=== PATIENT | male | born 1945 | race African-American/Black ===

== ENCOUNTER 2017-07-18 19:04 | Emergency (ER) | payer MEDICARE, MEDICAID ==
[~2017-07-18] VITALS: Ht 177.8 cm; Wt 83.9 kg
--- NOTE | 2017-07-18 19:00 | Emergency Room Report ---
History of Present Illness General Source: Patient, EMS (Manuel Brandt) Present Illness HPI Patient is a 72-year-old male brought in by EMS after increased generalized weakness and nausea and vomiting. Patient prior history of mandibular cancer. Patient had been noted to have several episodes of vomiting today. He denies any abdominal pain. (Manuel Brandt) Allergies: Coded Allergies: No Known Allergies (Unverified , 07/18/17) Patient History Past Medical History: see triage record Reviewed Nursing Documentation: PMH: Agreed, PSxH: Agreed (Manuel Brandt) Physical Exam General Appearance: alert, GCS 15, Chronically Ill ENT: other - right mandible resection, nystagmus with left gaze Neck: limited range of motion Respiratory: chest non-tender, lungs clear, normal breath sounds Cardiovascular #1: normal peripheral pulses, no edema Gastrointestinal: normal bowel sounds, non tender, soft Musculoskeletal: normal inspection, back normal Neurologic: alert, oriented x3, responsive, clinical laboratory scientist III-XII nml as tested, nystagmus Psychiatric: normal inspection, judgement/insight normal Skin: normal inspection, normal color, no rash, warm/dry, other - multiple scars to extremity (Manuel Brandt) Medical Decision Making Diagnostic Impression: Primary Impression: Episode of generalized weakness Additional Impression: Vertigo ER Course Patient presented for dizziness. Differential diagnosis included was not limited to CVA, vertebrobasilar insufficiency, myocardial infarction, benign positional vertigo, labyrinthitis, aspirin overdose among others. Because of complexity of patient's case laboratory testing and imaging studies were ordered.Patient was given Zofran. Patient was given oral meclizine. Patient had improvement in symptoms.Patient was noted to have CT the head read by radiology with atrophic changes without evident acute CVA or intrarenal hemorrhage. .CT of the abdomen pelvis read by radiology showed questionable thickening of the bladder consistent with cystitis. At the time of discharge patient is a ambulatory without assistance with a steady gait Patient is advised follow-up with his primary care physician for further evaluation.The patient is advised to follow up with primary care doctor in 1-2 days. Patient is advised to return if any worsening condition or if any changes in status that are concerning. This report is dictated with DTT full time paramedic software which may occasionally lead to discrepancies related to use of this software. Labs Test 07/18/17 20:20 07/18/17 21:20 White Blood Count 8.7 K/UL (4.8-10.8) Red Blood Count 5.56 M/UL (4.70-6.10) Hemoglobin 17.1 G/DL (14.2-18.0) Hematocrit 50.7 % (42.0-52.0) Mean Corpuscular Volume 91 FL (80-99) Mean Corpuscular Hemoglobin 30.7 PG (27.0-31.0) Mean Corpuscular Hemoglobin Concent 33.7 G/DL (32.0-36.0) Red Cell Distribution Width 11.6 % (11.6-14.8) Platelet Count 179 K/UL (150-450) Mean Platelet Volume 8.2 FL (6.5-10.1) Neutrophils (%) (Auto) 89.7 % (45.0-75.0) Lymphocytes (%) (Auto) 6.9 % (20.0-45.0) Monocytes (%) (Auto) 2.9 % (1.0-10.0) Eosinophils (%) (Auto) 0.0 % (0.0-3.0) Basophils (%) (Auto) 0.4 % (0.0-2.0) Prothrombin Time 10.0 SEC (9.30-11.50) Prothromb Time International Ratio 1.0 (0.9-1.1) Activated Partial Thromboplast Time 23 SEC (23-33) Sodium Level 137 MMOL/L (136-145) Potassium Level 4.8 MMOL/L (3.5-5.1) Chloride Level 100 MMOL/L (98-107) Carbon Dioxide Level 27 MMOL/L (21-32) Anion Gap 10 mmol/L (5-15) Blood Urea Nitrogen 19 mg/dL (7-18) Creatinine 1.7 MG/DL (0.55-1.30) Estimat Glomerular Filtration Rate mL/min (>60) Glucose Level 127 MG/DL (74-106) Calcium Level 10.1 MG/DL (8.5-10.1) Total Bilirubin 0.6 MG/DL (0.2-1.0) Aspartate Amino Transf (AST/SGOT) 42 U/L (15-37) Alanine Aminotransferase (ALT/SGPT) 48 U/L (12-78) Alkaline Phosphatase 104 U/L (46-116) Total Creatine Kinase 274 U/L (26-308) Total Protein 9.0 G/DL (6.4-8.2) Albumin 4.1 G/DL (3.4-5.0) Globulin 4.9 g/dL Albumin/Globulin Ratio 0.8 (1.0-2.7) Lipase 61 U/L (73-393) Urine Color Ruby Urine Appearance Clear Urine pH 5 (4.5-8.0) Urine Specific [place] 1.025 (1.005-1.035) Urine Protein 3+ (NEGATIVE) Urine Glucose (UA) Negative (NEGATIVE) Urine Ketones 2+ (NEGATIVE) Urine Occult Blood Negative (NEGATIVE) Urine Nitrite Negative (NEGATIVE) Urine Bilirubin Negative (NEGATIVE) Urine Ictotest Negative Urine Urobilinogen 1 MG/DL (0.0-1.0) Urine Leukocyte Esterase 1+ (NEGATIVE) Urine RBC 0-2 /HPF (0 - 0) Urine WBC 2-4 /HPF (0 - 0) Urine Squamous Epithelial Cells None /LPF (NONE/OCC) Urine Bacteria Few /HPF (NONE) (Manuel Brandt) Status: improved (aMnuel Brandt) Reevaluation Impression 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 He requested we send him a copy of the CT to his home. This was mailed 07/24. (Amrit Kasper M.D.) Disposition: HOME, SELF-CARE Condition: Stable Scripts Cephalexin* (KEFLEX*) 500 Mg Capsule 500 MG ORAL Q6H, #28 CAP 0 Refills Prov: Manuel Brandt 07/18/17 Ondansetron (Zofran) 4 Mg Tablet 4 MG ORAL Q6H Y for Nausea & Vomiting, #30 TAB 0 Refills Prov: Manuel Brandt 07/18/17 Meclizine Hcl* (MECLIZINE*) 25 Mg Tablet 25 MG ORAL THREE TIMES A DAY, #30 TAB Prov: Manuel Brandt 07/18/17 Manuel Brandt Jul 18, 2017 19:00 Amrit Kasper M.D. Jul 21, 2017 20:06
[~2017-07-18 19:04] MED LIST: Sodium Chloride 500ML 500 ML IV ONE; UNOBMED
[2017-07-18] MEDS ORDERED: Meclizine 25mg tab ORAL ONE (19:30)
[2017-07-18 20:33] LABS: HEMATOCRIT 50.7 % (42.0-52.0); HEMOGLOBIN 17.1 G/DL (14.2-18.0); MEAN CORPUSCULAR VOLUME 91 FL (80-99); PLATELET COUNT 179 K/UL (150-450); RED BLOOD COUNT 5.56 M/UL (4.70-6.10); RED CELL DISTRIBUTION WIDTH 11.6 % (11.6-14.8); WHITE BLOOD COUNT 8.7 K/UL (4.8-10.8)
[2017-07-18 20:34] LABS: BASOPHILS % (AUTO) 0.4 % (0.0-2.0); LYMPHOCYTES % (AUTO) 6.9 % (20.0-45.0); MONOCYTES % (AUTO) 2.9 % (1.0-10.0); NEUTROPHILS % (AUTO) 89.7 % (45.0-75.0)
[2017-07-18 20:41] LABS: ANION GAP 10 mmol/L (5-15); BLOOD UREA NITROGEN 19 mg/dL (7-18); CALCIUM 10.1 MG/DL (8.5-10.1); CARBON DIOXIDE 27 MMOL/L (21-32); CHLORIDE 100 MMOL/L (98-107); CREATININE 1.7 MG/DL (0.55-1.30); POTASSIUM 4.8 MMOL/L (3.5-5.1); SODIUM 137 MMOL/L (136-145)
[2017-07-18 20:46] LABS: ALANINE AMINOTRANSFERASE 48 U/L (12-78); ALBUMIN 4.1 G/DL (3.4-5.0); ALBUMIN/GLOBULIN RATIO 0.8 (1.0-2.7); ALKALINE PHOSPHATASE 104 U/L (46-116); ASPARTATE AMINO TRANSFERASE 42 U/L (15-37); BILIRUBIN,TOTAL 0.6 MG/DL (0.2-1.0); CREATINE KINASE 274 U/L (26-308)
[2017-07-18 21:38] LABS: APPEARANCE,URINE CLEAR; BILIRUBIN, URINE NEGATIVE (NEGATIVE); GLUCOSE, URINE (UA) NEGATIVE (NEGATIVE); KETONES,URINE 2+ (NEGATIVE); LEUKOCYTE ESTERASE ,URINE 1+ (NEGATIVE); NITRITE,URINE NEGATIVE (NEGATIVE); PH,URINE 5 (4.5-8.0); PROTEIN,URINE 3+ (NEGATIVE); UROBILINOGEN,URINE 1 MG/DL (0.0-1.0)
[2017-07-18 21:39] LABS: COLOR,URINE AMBER
[2017-07-18] MEDS ORDERED: MECLIZINE HCL25 MG ORAL (22:21)
[2017-07-18] MEDS ORDERED: ZOFRAN4 MG ORAL (22:21)
[2017-07-18] MEDS ORDERED: KEFLEX500 MG ORAL (22:38)
[2017-07-18 22:40] VITALS: BP 128/89
[2017-07-18 22:44] VITALS: BP 137/97
--- NOTE | 2017-07-19 09:17 | Diagnostic Imaging Report ---
Indication: Reason For Exam: AMS Technique: spiral acquisitions obtained through the brain. Angled axial and coronal 5 x 5 mm slices were reconstructed. No IV contrast utilized. Radiation dose was minimized using automated exposure control Total dose length product 1397.2 mGycm. CTDIvol(s) 70.38 mGy Comparison: none FINDINGS: No acute hemorrhage or edema. No mass effect or midline shift. There is age-related enlargement of the ventricles and extra axial CSF spaces. There is periventricular deep white matter ischemic change. Normal santiago-white differentiation. There is evidence of prior bilateral cataract surgery. Visualized sinuses are unremarkable. The mastoids are clear. Intact calvarium. 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 Negative for acute intracranial bleed or mass effect This agrees with the preliminary interpretation provided overnight by [facility] teleradiology service. The CT scanner at [facility] is accredited by the [employer] and the scans are performed using protocols designed to limit radiation exposure to as low as reasonably achievable to attain images of sufficient resolution adequate for diagnostic evaluation
--- NOTE | 2017-07-19 09:40 | Diagnostic Imaging Report ---
Indication: Abdominal pain, nausea, vomiting Technique: Spiral acquisitions obtained through the abdomen and pelvis. No oral contrast utilized, per emergency room physician request No IV contrast utilized, due to renal insufficiency.. Multiplanar reconstructions were generated. Total dose length product 681.02 mGycm. CTDIvol(s) 14.26 mGy. Dose reduction achieved using automated exposure control Comparison: None Findings: There is colonic diverticulosis. No evidence of diverticulitis. There is suggestion of mild colonic wall thickening diffusely, which is probably an artifact of under distention The appendix is normal. No small bowel distention. No free or loculated intraperitoneal air or fluid is evident. Distal esophagus is somewhat thick walled and there is a small hiatal hernia. The stomach and duodenum are unremarkable. Lack of IV contrast limits assessment of the solid organs. The liver demonstrates numerous subcentimeter low-attenuation lesions which are too small to characterize. A small fluid attenuation lesion with rim calcification is seen adjacent to the gallbladder fossa. A cyst is seen in segment 4A. The gallbladder, bile ducts, pancreas, spleen, adrenals are unremarkable. The left kidney demonstrates a 5.4 cm cyst. Both kidneys demonstrate smaller cysts and subcentimeter low-attenuation lesions which are too small to characterize, most likely benign simple cortical cysts. No retroperitoneal or mesenteric mass or adenopathy. No pelvic mass or adenopathy. Increased attenuation in the lower pelvis and right groin region is likely postsurgical. The included lung bases are clear. The bones demonstrate degenerative spondylosis changes. 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 The left common iliac artery is ectatic but not frankly aneurysmal. Impression: Small hiatal hernia. Mild distal esophageal wall thickening, could indicate esophagitis Equivocal mild colonic wall thickening, probably artifact due to under distention, colitis not completely excludable Rim calcified right lobe liver lesion, probably postinflammatory lesion Hepatic cysts and subcentimeter low-attenuation hepatic lesions which are too small to characterize, most likely benign simple cysts or bile hamartomas. No further follow-up necessary Renal cysts. Subcentimeter low-attenuation renal lesions which probably characterize, most likely benign simple cysts. No further follow-up necessary Post surgical changes of the pelvis and right groin Degenerative spondylosis changes The above findings agree with the preliminary interpretation provided overnight by [facility] teleradiology service. 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 This was not mentioned on the preliminary report, was discussed by phone with Dr. Kasper in the emergency room at the time of interpretation The CT scanner at [facility] is accredited by the [employer] and the scans are performed using protocols designed to limit radiation exposure to as low as reasonably achievable to attain images of sufficient resolution adequate for diagnostic evaluation.
--- NOTE | 2017-07-19 10:49 | Diagnostic Imaging Report ---
Indication: Reason For Exam: SOB Technique: One view of the chest Comparison: none Findings: Lungs and pleural spaces are clear. The heart size is normal. The aorta is tortuous Impression: No acute process
== END 2017-07-18 22:44 | disposition home or self-care (01) ==
LOC: EDBD 19:04 → EMR 19:30
DX: R53.1 Weakness (principal); R42 Dizziness and giddiness; R11.2 Nausea with vomiting, unspecified; R06.02 Shortness of breath; R10.9 Unspecified abdominal pain; K44.9 Diaphragmatic hernia without obstruction or gangrene; K76.89 Other specified diseases of liver; N28.1 Cyst of kidney, acquired
CPT/HCPCS: 70450; 71045; 74176; 80053; 81003; 82550; 83690; 85025; 85610; 85730; 99284